=== PATIENT | female | born 1995 | race Caucasian/White ===

== ENCOUNTER 2017-02-18 13:53 | Outpatient (CLI) | payer MEDICAID | END 2017-02-18 13:54 | disposition home or self-care (01) | DX: F43.10 Post-traumatic stress disorder, unspecified (principal); F90.0 Attention-deficit hyperactivity disorder, predominantly inattentive type; F31.0 Bipolar disorder, current episode hypomanic ==

== ENCOUNTER 2017-04-21 20:02 | Emergency (ER) | payer MEDICAID ==
[2017-04-21 20:22] LABS: BASOPHILS # (AUTO) 0.1 10^3/uL (0.0-0.1); BASOPHILS % (AUTO) 0.7 %; EOSINOPHILS % (AUTO) 0.2 %; HCT - HEMATOCRIT 41.1 % (37.0-47.0); HGB - HEMOGLOBIN 13.5 g/dL (12.0-16.0); LYMPHOCYTES # (AUTO) 0.9 10^3/uL (1.5-3.5); LYMPHOCYTES % (AUTO) 6.1 %; MEAN CORPUSCULAR HEMOGLOBIN 30.1 pg (27.0-31.0); MEAN CORPUSCULAR HGB CONC 32.8 g/dL (32.0-36.0); MEAN CORPUSCULAR VOLUME 91.8 fL (81.0-99.0); MEAN PLATELET VOLUME 8.1 fL (7.9-10.8); MONOCYTES # (AUTO) 0.7 10^3/uL (0.0-1.0); MONOCYTES % (AUTO) 4.6 %; NEUTROPHILS # (AUTO) 13.1 10^3/uL (1.5-6.6); NEUTROPHILS % (AUTO) 88.4 %; NUCLEATED RED BLOOD CELLS AUTO 0.1 /100WBC; RED BLOOD COUNT 4.48 10^6/uL (4.20-5.40); RED CELL DISTRIBUTION WIDTH 14.3 % (12.0-15.0); UNCORRECTED WHITE BLOOD COUNT 14.8 x10^3/uL; WHITE BLOOD COUNT 14.8 x10^3/uL (4.8-10.8)
[2017-04-21 20:42] LABS: ALBUMIN/GLOBULIN RATIO 1.5 (1.0-2.2); BILIRUBIN,TOTAL 1.1 mg/dL (0.2-1.0); CALCIUM 9.2 mg/dL (8.5-10.3); CREATININE 0.6 mg/dL (0.4-1.0); POTASSIUM 3.8 mmol/L (3.5-5.0); TOTAL PROTEIN 7.6 g/dL (6.7-8.2)
[2017-04-21] MEDS ORDERED: MORPHINE 2 MG/ML SYRINGE IVP STA (21:33)
[2017-04-21] MEDS ORDERED: KETOROLAC 60 MG/2 ML VIAL IVP STA (21:33)
[2017-04-21] MEDS ORDERED: SODIUM CHLORIDE 0.9% 1,000 ML IV STA (21:33)
[2017-04-21] MEDS ORDERED: ONDANSETRON 4 MG/2 ML VIAL IVP STA (21:33)
--- NOTE | 2017-04-21 21:39 | ED Physician Documentation ---
PD HPI ABD PAIN - Stated complaint Stated Complaint: VOMITING/CRAMPING - Chief complaint Chief Complaint: Abd Pain - History obtained from History obtained from: Patient - History of Present Illness Timing - onset: Enter time (14:00), Today Timing - duration: Hours Timing - details: Abrupt onset Pain level now: 8 Quality: Cramping, Pain Location: All over / everywhere Improved by: Other (no ameliorating factors) Worsened by: Breathing Associated symptoms: Nausea, Vomiting. No: Fever Similar symptoms before: Diagnosis (similar to 2015 inpatient stay, diagnosed with colitis (possible/probable, based on tests)) Recently seen: Not recently seen Review of Systems Constitutional: denies: Fever, Chills, Sweats Cardiac: reports: Reviewed and negative Respiratory: reports: Reviewed and negative GI: reports: Abdominal Pain, Nausea, Vomiting : denies: Dysuria, Frequency PD PAST MEDICAL HISTORY - Past Medical History Past Medical History: No - Past Surgical History Past Surgical History: No - Present Medications Home Medications: Ambulatory Orders Medication Instructions Recorded Confirmed Ondansetron HCl [Zofran] 4 mg PO Q6HR PRN #14 tablet 04/21/17 - Allergies Allergies/Adverse Reactions: Allergies Allergy/AdvReac Type Severity Reaction Status Date / Time Penicillins AdvReac Rash Verified 04/21/17 20:09 Sulfa (Sulfonamide AdvReac Rash Verified 04/21/17 20:09 Antibiotics) - Social History Does the pt smoke?: Yes Smoking Status: Current every day smoker Does the pt drink ETOH?: No Does the pt have substance abuse?: Yes - Immunizations Immunizations are current?: Yes - POLST Patient has POLST: No PD ED PE NORMAL - Vitals Vital signs reviewed: Yes - General General: Alert and oriented X 3, Well developed/nourished, Other (appears mildly uncomfortable, shifting in bed at times) - HEENT HEENT: Moist mucous membranes - Cardiac Cardiac: RRR, No murmur - Respiratory Respiratory: No respiratory distress, Clear bilaterally - Abdomen Abdomen: Soft, Non distended, Other (mild-moderate TTP across upper abdomen without rebound or guarding) Results - Vitals Vitals: Vital Signs - 24 hr 04/21/17 04/21/17 04/21/17 20:09 20:43 21:43 Temperature 36.5 C 37.1 C Heart Rate 89 85 75 Respiratory 20 18 18 Rate Blood Pressure 124/69 106/54 L O2 Saturation 98 100 97 04/21/17 23:10 Temperature 36.1 C L Heart Rate 81 Respiratory 15 Rate Blood Pressure 103/59 L O2 Saturation 97 Oxygen O2 Source Room air Oxygen Flow Rate 2 - Labs Labs: Laboratory Tests 04/21/17 04/21/17 04/21/17 20:15 20:15 21:53 WBC 14.8 H RBC 4.48 Hgb 13.5 Hct 41.1 MCV 91.8 MCH 30.1 MCHC 32.8 RDW 14.3 Plt Count 329 MPV 8.1 Neut # 13.1 H Lymph # 0.9 L [place] # 0.7 Eos # 0.0 Baso # 0.1 Absolute Nucleated RBC 0.01 Nucleated RBCs 0.1 Sodium 137 Potassium 3.8 Chloride 103 Carbon Dioxide 25 Anion Gap 9.0 BUN 10 Creatinine 0.6 Estimated GFR (MDRD) 124 Glucose 109 H Calcium 9.2 Total Bilirubin 1.1 H AST 22 ALT 16 Alkaline Phosphatase 53 Total Protein 7.6 Albumin 4.6 Globulin 3.0 Albumin/Globulin Ratio 1.5 Lipase 18 L Urine Color YELLOW Urine Clarity CLEAR Urine pH 8.5 H Ur Specific [place] 1.015 Urine Protein NEGATIVE Urine Glucose (UA) NEGATIVE Urine Ketones NEGATIVE Urine Occult Blood NEGATIVE Urine Nitrite NEGATIVE Urine Bilirubin NEGATIVE Urine Urobilinogen 1 (NORMAL) Ur Leukocyte Esterase NEGATIVE Ur Microscopic Review NOT INDICATED Urine Culture Comments NOT INDICATED Urine HCG, Qual NEGATIVE - Rads (name of study) CT A/P Radiology: Prelim report reviewed, See rad report PD MEDICAL DECISION MAKING - ED course Complexity details: reviewed results, re-evaluated patient, considered differential, d/w patient Departure - Departure Disposition: 01 Home, Self Care Clinical Impression: Abdominal pain Condition: Good Instructions: Abdominal Pain Follow-Up: [facility] [Provider Group] [facility] [Provider Group] Prescriptions: Ondansetron HCl [Zofran] 4 mg PO Q6HR PRN #14 tablet PRN Reason: Nausea / Vomiting Discharge Date/Time: 04/21/17 23:43
[2017-04-21] MEDS ORDERED: MORPHINE 2 MG/ML SYRINGE ONE (21:44)
[2017-04-21] MEDS ORDERED: ONDANSETRON 4 MG/2 ML VIAL ONE (21:44)
[2017-04-21] MEDS ORDERED: KETOROLAC 30 MG/ML VIAL ONE (21:44)
[2017-04-21 22:02] LABS: BILIRUBIN,URINE NEGATIVE (NEGATIVE); PH,URINE 8.5 PH (5.0-7.5)
[2017-04-21 22:04] LABS: HCG UR QUAL NEGATIVE; UA CHARGE (STRIP ONLY) YES; UR CULTURE IF IND NOT INDICATED
[2017-04-21] MEDS ORDERED: IOPAMIDOL-300 100 ML VIAL IVP ONE (22:25)
--- NOTE | 2017-04-21 23:03 | CT Preliminary Report ---
Exam: CT Abdomen/Pelvis W/ IMPRESSION: 1. No acute abdominal or pelvic abnormality. 2. Physiologic appearance of the uterus and ovaries. [facility] SITE ID: [id number]
--- NOTE | 2017-04-21 23:05 | CT Report ---
EXAM: CT ABDOMEN AND PELVIS EXAM DATE: 04/21/2017 10:19 PM. CLINICAL HISTORY: Diffuse abdominal pain. COMPARISONS: None. TECHNIQUE: Routine helical CT imaging was performed through the abdomen and pelvis. IV contrast: 100 cc Isovue-300. Enteric contrast: No. Reconstructions: Coronal and sagittal. In accordance with CT protocol optimization, one or more of the following dose reduction techniques w ere utilized for this exam: automated exposure control, adjustment of mA and/or KV based on patient s ize, or use of iterative reconstructive technique. FINDINGS: ABDOMEN: Liver: No significant abnormality. Stomach/Distal Esophagus: No significant abnormality. Gallbladder: No significant abnormality. Suspect fundal adenomyomatosis. Bile Ducts: No significant abnormality. Pancreas: No significant abnormality. Spleen: No significant abnormality. Kidneys: No solid appearing lesion. No hydronephrosis. Adrenals: No significant abnormality. Bowel: No obstruction. Average fecal residual. Appendix: Normal. Lymph Nodes: No pathologically enlarged nodes. Vasculature: Normal caliber aorta. Fluid: No significant free fluid. Abdominal Wall: No significant abnormality. Other: No significant abnormality. PELVIS: Uterus and Ovaries: No significant abnormality. Bladder: There is a punctate calcific density projecting along the left posterior lateral bladder bas e (image 84 series 3). Projects below the expected level of the UVJ. This is likely a phlebolith. Lymph Nodes: No pathologically enlarged nodes. Fluid: No significant free fluid. Other: None. BONES: No suspicious bony lesions. LOWER CHEST: No significant consolidation or effusion. IMPRESSION: 1. No acute abdominal or pelvic abnormality. 2. Physiologic appearance of the uterus and ovaries. [facility] Referring Provider Line: [phone] SITE ID: [id number]
[2017-04-21 23:10] VITALS: BP 103/59
[2017-04-21] MEDS ORDERED: HYDROcod/ACET 5/325 Prepack 6 PO STA (23:29)
[2017-04-21] MEDS ORDERED: HYDROcod/ACET 5/325 Prepack 6 PO ONE (23:35)
== END 2017-04-21 23:43 | disposition home or self-care (01) ==
LOC: ED 20:02
DX: R10.9 Unspecified abdominal pain (principal); R11.2 Nausea with vomiting, unspecified; F17.200 Nicotine dependence, unspecified, uncomplicated
CPT/HCPCS: 36415; 74177; 80053; 81003; 81025; 83690; 85025; 96374; 96375; 99283; 99284; Q9967; 81001; 87086

== ENCOUNTER 2017-08-22 19:09 | Observation (INO) | payer MEDICAID ==
[~2017-08-22 19:09] MED LIST: LACTATED RINGERS 1,000 ML IV ONE
[2017-08-22] MEDS ORDERED: ALBUTEROL NEB 2.5 MG/3 ML INH STA (20:18)
--- NOTE | 2017-08-22 20:21 | ED Physician Documentation ---
PD HPI ABD PAIN - Stated complaint Stated Complaint: SIDE PX/16WK OB - Chief complaint Chief Complaint: Abd Pain - History obtained from History obtained from: Patient - History of Present Illness Timing - onset: Other ( at 16 weeks gestation developed cough a few days ago and since yesterday has right lower quadrant pain radiating to the right back. It is worse when she coughs but also present at rest. There is no fever. She does have mild nausea. No history of abdominal surgeries.) Review of Systems Ten Systems: 10 systems reviewed and negative Constitutional: denies: Fever, Chills Ears: reports: Loss of hearing Nose: reports: Rhinorrhea / runny nose. denies: Congestion Cardiac: denies: Chest pain / pressure, Palpitations Respiratory: reports: Dyspnea, Cough GI: reports: Abdominal Pain, Nausea. 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 : None HEENT: None Psych: None Musculoskeletal: None Derm: None - Past Surgical History Past Surgical History: No - Present Medications Home Medications: Ambulatory Orders Medication Instructions Recorded Confirmed No Known Home Medications [No 08/22/17 08/22/17 Known Home Medications] - Allergies Allergies/Adverse Reactions: Allergies Allergy/AdvReac Type Severity Reaction Status Date / Time Penicillins AdvReac Rash Verified 08/22/17 19:25 Sulfa (Sulfonamide AdvReac Rash Verified 08/22/17 19:25 Antibiotics) - Social History Does the pt smoke?: Yes Smoking Status: Current every day smoker Does the pt drink ETOH?: No Does the pt have substance abuse?: No - Family History Family history: reports: Non contributory - Immunizations Immunizations are current?: Yes - POLST Patient has POLST: No PD ED PE NORMAL - Vitals Vital signs reviewed: Yes - General General: Alert and oriented X 3, No acute distress, Other (Frequent coughing) - HEENT HEENT: PERRL, EOMI - Neck Neck: Supple, no meningeal sign, No bony TTP - Cardiac Cardiac: RRR, No murmur - Respiratory Respiratory: Other (Mild diffuse expiratory wheezing, nonlabored) - Abdomen Abdomen: Other (Gravid, moderate tenderness in the right lower quadrant and mild diffuse tenderness in the pelvis. Bedside ultrasound demonstrates single live intrauterine with heart rate of 150.) - Back Back: No CVA TTP, No spinal TTP - Derm Derm: Normal color, Warm and dry - Extremities Extremities: No edema, No calf tenderness / cord - Neuro Neuro: Alert and oriented X 3, Normal speech - Psych Psych: Normal mood, Normal affect Results - Vitals Vitals: Vital Signs - 24 hr 08/22/17 08/22/17 08/22/17 19:23 20:25 22:01 Temperature 36.5 C 36.5 C Heart Rate 75 74 53 L Respiratory 18 16 17 Rate Blood Pressure 93/58 L 109/62 O2 Saturation 99 97 Oxygen O2 Source Room air - Labs Labs: Laboratory Tests 08/22/17 08/22/17 08/22/17 20:45 20:45 21:10 WBC 18.9 H RBC 4.01 L Hgb 12.8 Hct 37.1 MCV 92.5 MCH 31.9 H MCHC 34.5 RDW 14.4 Plt Count 195 MPV 9.4 Neut # 15.6 H Lymph # 1.8 [place] # 1.2 H Eos # 0.2 Baso # 0.1 Absolute Nucleated RBC 0.00 Nucleated RBCs 0.0 Sodium 134 L Potassium 3.7 Chloride 104 Carbon Dioxide 22 Anion Gap 8.0 BUN 5 L Creatinine 0.4 Estimated GFR (MDRD) 198 Glucose 90 Calcium 8.8 Total Bilirubin 0.5 AST 17 ALT 10 Alkaline Phosphatase 43 Total Protein 6.8 Albumin 3.7 Globulin 3.1 Albumin/Globulin Ratio 1.2 Lipase 21 L Urine Color YELLOW Urine Clarity CLEAR Urine pH 6.0 Ur Specific [place] 1.010 Urine Protein NEGATIVE Urine Glucose (UA) NEGATIVE Urine Ketones NEGATIVE Urine Occult Blood NEGATIVE Urine Nitrite NEGATIVE Urine Bilirubin NEGATIVE Urine Urobilinogen 0.2 (NORMAL) Ur Leukocyte Esterase NEGATIVE Ur Microscopic Review NOT INDICATED Urine Culture Comments NOT INDICATED - Rads (name of study) RUQ sono Radiology: EMP read contemporaneously (appendix not visualized, incidental findings as noted (not "mediastinal" as on initial impression, called Dr Flores to confirm.)) PD MEDICAL DECISION MAKING - ED course ED course: 21-year-old woman presents with right lower quadrant pain in the setting of a URI with wheezing. Her examination is very suggestive of appendicitis with right lower quadrant tenderness and rebound tenderness. An ultrasound was done, however we could not identify the appendix. At that juncture the on-call surgeon, Dr. Diez was called and he saw the patient plans to take her to the operating room for an exploratory laparoscopy. Departure - Departure Disposition: ED Transfer to [facility] Clinical Impression: Acute abdomen Qualifiers: Weeks of gestation: 16 weeks Qualified Code(s): Z3A.16 - 16 weeks gestation of Condition: Stable
[2017-08-22] MEDS ORDERED: SODIUM CHLORIDE FLUSH 0.9% 10 ML SYRINGE IVP ONE ×2 (20:28→22:26)
[2017-08-22] MEDS ORDERED: ALBUTEROL NEB 2.5 MG/3 ML INH ONE (20:29)
[2017-08-22 20:50] LABS: BASOPHILS # (AUTO) 0.1 10^3/uL (0.0-0.1); BASOPHILS % (AUTO) 0.4 %; EOSINOPHILS # (AUTO) 0.2 10^3/uL (0.0-0.7); EOSINOPHILS % (AUTO) 1.1 %; HCT - HEMATOCRIT 37.1 % (37.0-47.0); HGB - HEMOGLOBIN 12.8 g/dL (12.0-16.0); LYMPHOCYTES # (AUTO) 1.8 10^3/uL (1.5-3.5); LYMPHOCYTES % (AUTO) 9.3 %; MEAN CORPUSCULAR HEMOGLOBIN 31.9 pg (27.0-31.0); MEAN CORPUSCULAR HGB CONC 34.5 g/dL (32.0-36.0); MEAN CORPUSCULAR VOLUME 92.5 fL (81.0-99.0); MEAN PLATELET VOLUME 9.4 fL (7.9-10.8); MONOCYTES # (AUTO) 1.2 10^3/uL (0.0-1.0); MONOCYTES % (AUTO) 6.5 %; NEUTROPHILS # (AUTO) 15.6 10^3/uL (1.5-6.6); NEUTROPHILS % (AUTO) 82.7 %; RED BLOOD COUNT 4.01 10^6/uL (4.20-5.40); RED CELL DISTRIBUTION WIDTH 14.4 % (12.0-15.0); UNCORRECTED WHITE BLOOD COUNT 18.9 x10^3/uL; WHITE BLOOD COUNT 18.9 x10^3/uL (4.8-10.8)
[2017-08-22 21:02] LABS: ALBUMIN/GLOBULIN RATIO 1.2 (1.0-2.2); BILIRUBIN,TOTAL 0.5 mg/dL (0.2-1.0); CALCIUM 8.8 mg/dL (8.5-10.3); CREATININE 0.4 mg/dL (0.4-1.0); POTASSIUM 3.7 mmol/L (3.5-5.0); TOTAL PROTEIN 6.8 g/dL (6.7-8.2)
[2017-08-22 21:18] LABS: BILIRUBIN,URINE NEGATIVE (NEGATIVE)
[2017-08-22 21:23] LABS: UA CHARGE (STRIP ONLY) YES; UR CULTURE IF IND NOT INDICATED
--- NOTE | 2017-08-22 21:32 | Ultrasound Preliminary Report ---
Exam: US Abdomen Limited IMPRESSION: 1. Appendix not visualized. 2. Other mediastinal findings as noted. [facility] SITE ID: [id number]
--- NOTE | 2017-08-22 21:35 | Ultrasound Report ---
EXAM: Limited ABDOMEN ultrasound EXAM DATE: 08/22/2017 09:20 PM. CLINICAL HISTORY: RLQ pain, try to find appendix. COMPARISON: None. TECHNIQUE: Real-time scanning was performed of the right lower quadrant with static images obtained. FINDINGS: APPENDIX: Not seen. COMPRESSION TOLERATED: Moderate. ASSOCIATED FINDINGS: Lymph Nodes Seen: No. Free Fluid/Complex Fluid Seen: No. Thickened Bowel Wall Seen: No. Other: Minimal prominence of right renal collecting structures. Grossly unremarkable right ovary with normal vascularity. Intrauterine gestation with heart rate 146 bpm. IMPRESSION: 1. Appendix not visualized. 2. Other mediastinal findings as noted. [facility] Referring Provider Line: [phone] SITE ID: [id number]
[2017-08-22] MEDS ORDERED: MORPHINE 2 MG/ML SYRINGE IVP STA (22:19)
[2017-08-22] MEDS ORDERED: MORPHINE 2 MG/ML SYRINGE ONE (22:25)
[2017-08-22] MEDS ORDERED: ONDANSETRON 4 MG/2 ML VIAL IVP STA (23:00)
[2017-08-22] MEDS ORDERED: ONDANSETRON 4 MG/2 ML VIAL ONE (23:16)
[2017-08-22] MEDS ORDERED: metroNIDAZOLE 500 MG/100 ML 100 ML ONE (23:47)
[2017-08-23] MEDS ORDERED: ONDANSETRON 4 MG/2 ML VIAL IVP ONE (00:15)
[2017-08-23] MEDS ORDERED: ROCURONIUM 50 MG/5 ML VIAL IVP ONE (00:15)
[2017-08-23] MEDS ORDERED: fentaNYL 100 MCG/2 ML VIAL IVP ONE (00:15)
[2017-08-23] MEDS ORDERED: PROPOFOL 200 MG/20 ML VIAL IVP ONE (00:15)
[2017-08-23] MEDS ORDERED: LIDOCAINE-MPF 2% 5 ML VIAL IM ONE (00:15)
[2017-08-23] MEDS ORDERED: SUCCINYLCHOLINE 200 MG/10 ML VIAL IVP ONE (00:15)
[2017-08-23] MEDS ORDERED: ACETAMINOPHEN 1,000 MG/100 ML 100 ML IV ONE (00:15)
[2017-08-23] MEDS ORDERED: HYDROmorphone 1 MG/ML CARPUJECT IVP ONE (00:15)
[2017-08-23] MEDS ORDERED: BUPIVACAINE 0.25%-EPI 1:200000 PF 10 ML VIAL SUBQ ONE (00:40)
[2017-08-23] MEDS ORDERED: SODIUM CHLORIDE 0.9% 1,000 ML IV ONE ×2 (03:14→15:48)
[2017-08-23] MEDS ORDERED: HYDROmorphone 1 MG/ML CARPUJECT ONE ×4 (03:16→15:40)
--- NOTE | 2017-08-23 03:22 | HISTORY & PHYSICAL EXAMINATION ---
DATE OF ADMISSION: 08/22/2017 HISTORY OF PRESENT ILLNESS: I am called in consultation by Dr. Fred Scanlon to evaluate this 21-year-old female who has had a less than 24-hour history of abdominal pain that localized to the right lower quadrant and going back to her flank. This is accompanied by nausea, but she has not vomited yet, although she states that she feels like she needs to. She is anorectic. She has had a low grade temperature. Importantly, she has also had an upper respiratory infection with chronic coughing and this predates this abdominal pain. Also important to note, is the patient is 16 weeks . Previously she has had an and a miscarriage. ALLERGIES: 1. PENICILLIN. 2. SULFA. MEDICATIONS: vitamins but she states that she did not take her vitamins today. SOCIAL HISTORY: She is a cigarette smoker and states that she is having 1 cigarette a day. I urged her and her significant other to quit for the health of her baby. Alcohol, none. Recreational drug use, none. FAMILY HISTORY: Noncontributory for this. REVIEW OF SYSTEMS: GENERAL: There has been no unexplained weight loss. HEENT: There is no improvement or decrease in her hearing or vision. NECK: There is no difficulty swallowing or speaking. CARDIAC: There is no chest pain or pressure. RESPIRATORY: There is no shortness of breath, but there is productive cough. ABDOMEN: Tender in the right lower quadrant. She, up until today, was having normal bowel movements without blood. GENITOURINARY: There is no dysuria. EXTREMITIES: There is no joint pain or muscle pain. NEUROLOGIC: There is no focal deficit. PSYCHIATRIC: There is no significant problem with anxiety or depression. PHYSICAL EXAMINATION: GENERAL: This is a 21-year-old female evaluated in room 2 at [facility]'s emergency department. She is alert and oriented to person, place and time. She appears her stated age. She is in quite a bit of pain and points to her right lower quadrant. Moving hurts but she cannot find a comfortable position. VITAL SIGNS: Please refer to nursing note. HEENT: She is normocephalic, atraumatic. Sclerae not injected, anicteric. Mucous membranes are pink and dry. NECK: Supple without mass or bruits. HEART: Regular rate and rhythm without rub, murmur or gallop. LUNGS: Clear to auscultation bilaterally, anterolaterally. ABDOMEN: Tender. Point of maximal tenderness at McBurney point. She does have bowel sounds. She has a gravid uterus that is palpable She has no palpable hepatosplenomegaly. GYNECOLOGIC: Deferred. RECTAL: Deferred. EXTREMITIES: Show no clubbing, cyanosis, or edema. GAIT: evaluated and is normal. NEUROLOGIC: There is no focal deficit. PSYCHIATRIC: She is alert and oriented to person, place and time. She asks and answers questions well. Her mood and affect appear appropriate. LABORATORY: Abnormalities include a white blood cell count over 18. Please note that [employer] is down and I cannot retrieve those numbers now. RADIOGRAPHIC STUDIES: The appendix is not visualized and other mediastinal findings as noted on her abdominal ultrasound. ASSESSMENT: A 21-year-old female with signs and symptoms consistent with acute appendicitis. PLAN: Laparoscopic appendectomy with possible open appendectomy. The indications , procedure, alternatives, and possible complications including but not limited to infection, bleeding with all of its risks, loss of the baby, and were fully explained to the patient and all questions were answered. Verbal and written consent was obtained. The patient in preparation for this will be maintained n.p.o. The patient has been given 2 grams of aztreonam IV piggyback for prophylaxis against surgical infection, as well as 500 mg of Flagyl. I have asked her to let us know if there is any way we can make her stay here at [facility] more comfortable, to please let us know, and she stated that she would. JOB #: [id number] EXT JOB #:[id number] OCHOA
--- NOTE | 2017-08-23 03:46 | OPERATIVE REPORT ---
DATE OF SURGERY: 08/22/2017 00:00:00 PREOPERATIVE DIAGNOSIS: Acute appendicitis. PROCEDURE: Laparoscopic appendectomy and umbilical herniorrhaphy. POSTOPERATIVE DIAGNOSIS: Rather normal looking appendix with a somewhat inflamed right ovary and fall opian tube without purulence. SURGEON: Car Diez MD. LAWN TECHNICIAN: Manjinder Lunsford. OPERATIVE FLUIDS: 800 mL crystalloid. ESTIMATED BLOOD LOSS: Less than 5 mL. URINE OUTPUT: Not measured. DETAILS OF THE PROCEDURE: After verbal and written informed consent was obtained detailing the risks of infection, bleeding requiring transfusion with its risks, loss of the baby and , the patient was brought to the operative suite and placed supine on the operating room table. Great care was take n to avoid pressure points to prevent pressure necrosis or nerve injury. Monitoring devices were appl ied along with TEDs and pneumatic compression stockings to prevent DVT. The patient received preopera tive antibiotics (aztreonam and Flagyl) for surgical prophylaxis. Manjinder Lunsford sedated and anestheti zed the patient for the entire procedure. The patient was prepped and draped in the usual sterile man ner. With the patient draped, a "time in" then confirmed the patient was identified with 3 identifier s (name, date, and medical record number), the history and physical was in the chart, and kavon d consent confirmed the procedure was in the chart, the patient was in the correct position, the afor ementioned prophylactic measures were in place were given, we had the correct personnel and equipment to complete the procedure, and that anesthesia and surgery and nursing were given an opportunity to express any concerns. With the agreement of everyone in the room, we proceeded with the operation. A 2 cm umbilical incision was made. As soon as the skin was opened, it was clear that the patient had a n umbilical hernia, as we were into the abdomen. This fascia was then cleared with subcutaneous tissu e using a tonsil clamp and this incision was then widened using a knife, as well as Metzenbaum scisso rs to allow entry of a 12 mm blunt-tipped balloon-tipped Balaji port into the abdomen without inciden t. The balloon was inflated to keep it in place. The pneumoperitoneum was then established using carb on dioxide insufflation to a steady state of pressure of 15 mmHg. Two additional 5 mm ports were plac ed, one in the midline above the umbilicus and one in the right mid abdomen to avoid the gravid uteru s. The patient was then rotated slightly to the left and slightly head down (from the gallbladder). The appendix was identified and noted to be retrocecal. The appendix was then dissected free from its att achments behind the cecum using a LigaSure and traction and countertraction. The dissection was brandon ed down to the base of the appendix. No bleeding was noted. Once the mesentery of the appendix had be en completely taken using the LigaSure, the base of the appendix was stapled and transected using a l aparoscopic vascular stapler. The visualization of the staple line revealed absolutely no bleeding or leak of bowel contents. The appendix was then placed in an Endopouch for the remainder of the case a nd the patient was rotated to lie flat. Numerous photographs were taken of a rather odd appearing rig ht ovary and fallopian tubes that looked quite vascular. The fascia and skin were injected using a to hilda of 30 mL of 0.25% Marcaine with epinephrine for pain control. The insufflation was released, and the ports removed. The fascial defect at the umbilicus was then approximated using 0 Vicryl sutures a nd 3 figure of 8 configurations were closed in the fascia and repairing the umbilical hernia. The ski n incisions were approximated using 4-0 Monocryl in a subcuticular fashion. The surgical prep was rem nicole and the skin was prepped with benzoin and Steri-Strips were applied. A dressing was applied. At this point, a timeout was performed that confirmed that all counts were correct x2, the procedure emmy t was performed, the blood loss, the urine output (not measured), the IV fluids administered, and the patient's condition. Having tolerated the procedure well, the patient was subsequently extubated and taken to the recovery room in good and stable condition. JOB #: [id number] EXT JOB #:[id number]
--- NOTE | 2017-08-23 04:58 | CONSULTATION NOTE ---
DATE OF CONSULTATION: 08/23/2017 00:00:00 IDENTIFICATION: A 23-year-old G3, P0-0-2-0, with approximately 16-week . EDC is 02/02/2018 b y boyfriend's report. HISTORY OF PRESENT ILLNESS: I was consulted by Dr. Car Diez who had just completed a laparoscopi c appendectomy and umbilical herniorrhaphy on the patient this evening. She presented earlier to the emergency department with complaints of right lower quadrant pain. Intraoperatively, Dr. Diez not ed that her appendix was grossly normal and was not sure why the patient was in such pain when she aw loc from anesthesia. The patient has been pretty much writhing in the gurney here in the postoperativ e recovery area. She has been given at least 500 mcg of fentanyl and 2 mg of Dilaudid and the patient is still in significant pain. I looked at the photographs from laparoscopy and the ovaries are within normal limits and appear to j ust have a progestational effect. From what I can see from the photographs, there is nothing abnormal about the . I did interview Kevan, the patient's boyfriend and father of the baby. He state s that for the last day and a half, the patient has been experiencing this abdominal pain. He states that she has had an acute onset of where she points to right flank pain that originates in her right back and travels anteriorly to her flank and then to the right lower quadrant. Kevan denies the patie nt complaining of any hematuria or vaginal bleeding. He states that the patient tried Tylenol to no a vail. He also states she had a low-grade fever, but denies any headaches or dysuria. Kevan also state s that the patient has been having an upper respiratory infection for the last 2 days and has been co ughing quite a bit. In addition to her upper respiratory infection, she has been dealing with morning sickness and not eating as much. He has noticed that she has decreased her water intake and he is co ncerned about this. Kevan states that the patient is followed by Dr. Winnie Friend with respect to thi s . 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 PAST MEDICAL HISTORY: None. Kevan denies the patient having any diabetes, hypertension or thyroid dis orders. PAST SURGICAL HISTORY: On 08/23/2017, laparoscopic appendectomy and umbilical herniorrhaphy. ALLERGIES 1. PENICILLIN. 2. SULFA. MEDICATIONS 1. vitamins 2. P.r.n. Tylenol. 3. P.r.n. Robitussin. SOCIAL HISTORY: The patient has been a long-time smoker for long than Kevan has known her. He would e stimate at least the patient has a 5-year history of smoking. She is currently down to 1 cigarette pe r day. Kevan denies the patient consuming alcohol. Kevan also states that the patient smokes marijuan a quite a bit and has been smoking marijuana for nausea during this . She has cut down quite a bit compared to her normal. 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 PAST OBSTETRICAL HISTORY: One therapeutic , one spontaneous . PAST GYNECOLOGICAL HISTORY: The patient have any prior history of chlamydia or gonorrhea. He states t hat her Pap smears have been normal. OBJECTIVE VITAL SIGNS: Stable, she is currently afebrile. GENERAL: The patient is a well-developed, well-nourished female in some amount of pain here in the recovery room. She has been moaning in pain, but will have periods of being quiet. She cannot elucidate to me currently exactly what kind of pain she is experiencing. She does note that this nathaniel n is worse than previous to surgery. HEENT: She has oily hair and poor dentition. LABORATORY: Copies of the laboratories were obtained from the laboratory itself since [facility] is cur rently down. On 08/22/2017, white count was 18.9, H and H was 12.8 and 37.1, and platelets 195. Sodiu m 134, potassium 3.7, creatinine 0.4, glucose 90, AST 17, ALT 10. Urinalysis is essentially unremarka ble with negative leukocytes, negative nitrites, negative protein, negative occult blood, specific gr avity is 1.01. Ketones are negative, and glucose is negative. The MUDSS is currently pending. ASSESSMENT 1. A 23-year-old G3, P0-0-2-0, with an approximately a 16-week intrauterine . 2. Right abdominal pain. 3. Status post laparoscopic appendectomy with umbilical herniorrhaphy on 08/23/2017. PLAN 1. It is not clear to me why the patient is experiencing this pain. Certainly we need to wait until t he MUDDS screen comes back, as this would explain why such a high amount of narcotics has not effecti maría taken care of her symptoms. Assuming that is negative, my best guess why the patient is having t his pain is probably ureteral. I suspect that with pain medications, as well as IV hydration, this wi ll help with her pain. In the meantime, I recommended to strain her urine. A repeat of the urinalysis also could be a consideration. 2. Daily heart tones. 3. We will request records from Dr. Winnie Friend for the patient's records. JOB #: [id number] EXT JOB #:[id number]
[2017-08-23 06:09] LABS: BASOPHILS % (AUTO) 0.1 %; HCT - HEMATOCRIT 33.2 % (37.0-47.0); HGB - HEMOGLOBIN 11.3 g/dL (12.0-16.0); LYMPHOCYTES # (AUTO) 0.6 10^3/uL (1.5-3.5); LYMPHOCYTES % (AUTO) 3.5 %; MEAN CORPUSCULAR HGB CONC 34.1 g/dL (32.0-36.0); MEAN CORPUSCULAR VOLUME 93.8 fL (81.0-99.0); MONOCYTES # (AUTO) 0.3 10^3/uL (0.0-1.0); MONOCYTES % (AUTO) 1.8 %; NEUTROPHILS # (AUTO) 15.6 10^3/uL (1.5-6.6); NEUTROPHILS % (AUTO) 94.6 %; RED BLOOD COUNT 3.53 10^6/uL (4.20-5.40); RED CELL DISTRIBUTION WIDTH 14.4 % (12.0-15.0); UNCORRECTED WHITE BLOOD COUNT 16.5 x10^3/uL; WHITE BLOOD COUNT 16.5 x10^3/uL (4.8-10.8)
[2017-08-23] MEDS ORDERED: HYDROcod/ACETAM 10 MG/325 MG TABLET PO PRN (06:11)
[2017-08-23 06:24] LABS: ALBUMIN/GLOBULIN RATIO 1.2 (1.0-2.2); BILIRUBIN,TOTAL 0.5 mg/dL (0.2-1.0); BUN - BLOOD UREA NITROGEN 5 mg/dL (6-20); CALCIUM 7.8 mg/dL (8.5-10.3); CARBON DIOXIDE - CO2 22 mmol/L (21-32); CHLORIDE 107 mmol/L (101-111); CREATININE 0.5 mg/dL (0.4-1.0); GFR - MDRD 153 (>89); GLUCOSE 131 mg/dL (70-100); SODIUM 135 mmol/L (135-145); TOTAL PROTEIN 5.9 g/dL (6.7-8.2)
[2017-08-23] MEDS ORDERED: metroNIDAZOLE 500 MG/100 ML 500 MG/100 ML BAG ONE (06:52)
[2017-08-23] MEDS ORDERED: metroNIDAZOLE 500 MG/100 ML 500 MG/100 ML BAG IV SCH (07:00)
[2017-08-23] MEDS: HYDROmorphone 1 MG/ML CARPUJECT IVP PRN ×3 (07:05→19:21)
[2017-08-23] MEDS ORDERED: AZTREONAM 2 GM in SODIUM CHLORIDE 0.9% MINIBAG 100 ML IV SCH ×2 (08:00→13:00)
--- NOTE | 2017-08-23 09:07 | PROVIDER PROGRESS NOTE ---
Subjective - Prog Note Date Prog Note Date: 08/23/17 Prog Note Time: 09:05 - Subjective Pt reports feeling: Worse Subjective: Patient lying still in bed. No longer writhing like she did in recovery. Not moaning, no coughing during interview. Boyfriend (Roland) at bedside as well as boyfriend's mom. States the pain is still severe, as bad as it was in recovery. Pain now is reported on the left side, not the right side. Objective - Vital Signs/Intake & Output Reviewed Vital Signs: Yes - Objective General Appearance: positive: No acute distress (Patient not obvious pain. Clinically looks much improved compared to her presentation in Recovery. Lying still in bed, not writhing as before.) Abdomen: positive: Tenderness (Steri-strips on 3 laparoscopic incisions. Appropriate tenderness. No peritoneal signs.) - Lab Results Fish Bones: 08/23/17 05:28 08/23/17 05:28 Other Labs: Lab Results x24hrs 08/23/17 08/23/17 Range/Units 05:28 05:28 WBC 16.5 H (4.8-10.8) x10^3/uL RBC 3.53 L (4.20-5.40) 10^6/uL Hgb 11.3 L (12.0-16.0) g/dL Hct 33.2 L (37.0-47.0) % MCV 93.8 (81.0-99.0) fL MCH 32.0 H (27.0-31.0) pg MCHC 34.1 (32.0-36.0) g/dL RDW 14.4 (12.0-15.0) % Plt Count 167 (130-450) 10^3/uL MPV 10.0 (7.9-10.8) fL Neut # 15.6 H (1.5-6.6) 10^3/uL Lymph # 0.6 L (1.5-3.5) 10^3/uL Taliaferro # 0.3 (0.0-1.0) 10^3/uL Eos # 0.0 (0.0-0.7) 10^3/uL Baso # 0.0 (0.0-0.1) 10^3/uL Absolute Nucleated RBC 0.00 x10^3/uL Nucleated RBC % 0.0 /100WBC Sodium 135 (135-145) mmol/L Potassium 4.0 (3.5-5.0) mmol/L Chloride 107 (101-111) mmol/L Carbon Dioxide 22 (21-32) mmol/L Anion Gap 6.0 (6-13) BUN 5 L (6-20) mg/dL Creatinine 0.5 (0.4-1.0) mg/dL Estimated GFR (MDRD) 153 (>89) Glucose 131 H (70-100) mg/dL Calcium 7.8 L (8.5-10.3) mg/dL Total Bilirubin 0.5 (0.2-1.0) mg/dL AST 16 (10-42) IU/L ALT < 10 L (10-60) IU/L Alkaline Phosphatase 40 L (42-121) IU/L Total Protein 5.9 L (6.7-8.2) g/dL Albumin 3.2 (3.2-5.5) g/dL Globulin 2.7 (2.1-4.2) g/dL Albumin/Globulin Ratio 1.2 (1.0-2.2) Assessment/Plan - Problem List (1) Acute abdomen Impression: 21 yo with a 16 week IUP. S/p laparoscopic appendectomy Abdominal pain of unknown etiology. Patient now states that pain in on the left side. Patient is Obstetrically stable. May consider retroperitoneal U/S to better ellucidate cause of pain. DDx includes ureterolith and hydronephrosis.
[2017-08-23] MEDS: ACETAMINOPHEN 1,000 MG/100 ML 100 ML IV SCH ×4 (11:56→23:58)
[2017-08-23] MEDS: SODIUM CHLORIDE 0.9% 1,000 ML IV SCH ×3 (11:56→15:46)
[2017-08-23] MEDS: SODIUM CHLORIDE FLUSH 0.9% 10 ML SYRINGE IVP ONE ×2 (11:57→13:46)
[2017-08-23] MEDS ORDERED: SODIUM CHLORIDE FLUSH 0.9% 10 ML SYRINGE IVP ONE ×2 (13:33→19:23)
[2017-08-23] MEDS ORDERED: ACETAMINOPHEN 1,000 MG/100 ML 100 ML IV SCH (16:00)
[2017-08-23] MEDS: HYDROcod/ACETAM 10 MG/325 MG TABLET PO PRN (18:39)
[2017-08-23] MEDS: AZTREONAM 2 GM in SODIUM CHLORIDE 0.9% MINIBAG 100 ML IV SCH (19:51)
[2017-08-23] MEDS ORDERED: ONDANSETRON 4 MG/2 ML VIAL ONE (21:05)
[2017-08-24] MEDS ORDERED: ONDANSETRON 4 MG/2 ML VIAL IVP PRN (00:07)
--- NOTE | 2017-08-24 00:14 | PROVIDER PROGRESS NOTE ---
Subjective - General Admit Date: 08/23/17 Procedure Date: 08/23/17 Post Op Days: 1 Procedure Performed: Laparoscopic appendectomy - Review of Systems Wound/Incisions: positive: Drainage (Minimal) General: positive: Other (Pain out of proportion to her surgery or findings.) HEENT: positive: No symptoms Pulmonary: positive: Cough, Sputum Cardiovascular: positive: No symptoms Gastrointestinal: positive: Other (Pain in right side and flank.) Genitourinary: positive: No symptoms Musculoskeletal: positive: Other (Continued right flank pain.) Skin: positive: No symptoms Psychiatric: positive: Anxiety Objective - Patient Data Reviewed Vital Signs: Yes Vital Signs: Vital Signs x48h Temp Pulse Resp BP Pulse Ox 08/24/17 00:10 36.8 C 76 18 114/62 91 L 08/23/17 22:56 36.8 C 78 18 105/58 L 96 Intake & Output: Intake and Output Totals x24h 08/22/17 08/23/17 08/24/17 23:59 23:59 23:59 Intake Total 320 Output Total 400 Balance -80 - Lab Results Lab Results: 08/23/17 05:28 08/23/17 05:28 Other Lab Results: Lab Results x24hrs 08/23/17 08/23/17 Range/Units 05:28 05:28 WBC 16.5 H (4.8-10.8) x10^3/uL RBC 3.53 L (4.20-5.40) 10^6/uL Hgb 11.3 L (12.0-16.0) g/dL Hct 33.2 L (37.0-47.0) % MCV 93.8 (81.0-99.0) fL MCH 32.0 H (27.0-31.0) pg MCHC 34.1 (32.0-36.0) g/dL RDW 14.4 (12.0-15.0) % Plt Count 167 (130-450) 10^3/uL MPV 10.0 (7.9-10.8) fL Neut # 15.6 H (1.5-6.6) 10^3/uL Lymph # 0.6 L (1.5-3.5) 10^3/uL [place] # 0.3 (0.0-1.0) 10^3/uL Eos # 0.0 (0.0-0.7) 10^3/uL Baso # 0.0 (0.0-0.1) 10^3/uL Absolute Nucleated RBC 0.00 x10^3/uL Nucleated RBC % 0.0 /100WBC Sodium 135 (135-145) mmol/L Potassium 4.0 (3.5-5.0) mmol/L Chloride 107 (101-111) mmol/L Carbon Dioxide 22 (21-32) mmol/L Anion Gap 6.0 (6-13) BUN 5 L (6-20) mg/dL Creatinine 0.5 (0.4-1.0) mg/dL Estimated GFR (MDRD) 153 (>89) Glucose 131 H (70-100) mg/dL Calcium 7.8 L (8.5-10.3) mg/dL Total Bilirubin 0.5 (0.2-1.0) mg/dL AST 16 (10-42) IU/L ALT < 10 L (10-60) IU/L Alkaline Phosphatase 40 L (42-121) IU/L Total Protein 5.9 L (6.7-8.2) g/dL Albumin 3.2 (3.2-5.5) g/dL Globulin 2.7 (2.1-4.2) g/dL Albumin/Globulin Ratio 1.2 (1.0-2.2) - Current Medications Current Medications: Current Medications Generic Name Dose Route Start Last Admin Trade Name Freq PRN Reason Stop Dose Admin Acetaminophen/Hydrocodone Bitart 1 tab 08/23/17 15:42 08/23/17 18:39 Hemlock 10 Mg/325 Mg PO 1 tab Q4HR PRN Administration PAIN Hydromorphone HCl 0.5 mg 08/23/17 15:42 08/23/17 19:21 Dilaudid Inj IVP 0.5 mg Q30M PRN Administration PAIN Sodium Chloride 1,000 mls @ 200 mls/hr 08/23/17 16:00 08/23/17 15:46 Normal Saline 0.9% IV 200 mls/hr .Q5H MEIR Administration Acetaminophen 100 mls @ 400 mls/hr 08/23/17 18:00 08/23/17 23:58 Ofirmev IV 08/24/17 00:14 400 mls/hr Q6H MEIR Administration Aztreonam 2 gm/ Sodium 100 mls @ 100 mls/hr 08/23/17 20:00 08/23/17 19:51 Chloride IV 100 mls/hr Q8H MEIR Administration - Physical Exam Wound/Incisions: positive: Drainage (Minimal.) General Appearance: positive: Moderate distress, Anxious Eyes Bilateral: positive: No lid inflammation, Conjunctivae nml, No scleral icterus Neck: positive: Trachea midline Respiratory: positive: Chest non-tender Cardiovascular: positive: Regular rate & rhythm Abdomen: positive: Tenderness (RIGHT side. Some incisional. Good bowel sounds. ) Skin: positive: Color nml Extremities: positive: Non-tender, Full ROM, Nml appearance Neurologic/Psychiatric: positive: Oriented x3 Impression/Plan - Problem List Problem List: D0 s/p laparosccopic appendectomy Patient was admitted due to uncontrolled postoperative pain. Earlier in her postoperative course she had received 400 mcg of fentanyl and was still complaining of pain. She is still complaining of pain out of proportion to what she should be feeling following the surgery. Additionally another point of concern is that her white blood cell count is still elevated with left shift despite the surgery and despite antibiotics. She is "acting" like someone who has kidney stones but her urinalysis has not been revealing. Due to her I do not want to do a CT scan to look for the hydronephrosis. Instead , I have ordered a retroperitoneal ultrasound. Additionally, due to her productive cough I have ordered a chest x-ray to rule out the possibility of pneumonia. It is definitely not safe to discharge this postoperative female with an elevated white blood cell count until he can find out the cause of the leukocytosis. The antibiotics will be continued as has the pain medication. Chest x-ray has been ordered for this evening with a retroperitoneal ultrasound to be done tomorrow morning. Additional lab work is also been ordered. I truly appreciate Dr. Wharton's input in the care of this patient. Blanca disclaimer: This document was created in part using voice recognition technology. Because of the inherent limitations of the system ([employer] user manual states that the licensee understands that speech recognition is a statistical process and that recognition errors are inherent in the process), occasional same sounding word substitutions and grammatical errors do occur and persist despite proofreading. Please read this document for context.
[2017-08-24] MEDS: HYDROmorphone 1 MG/ML CARPUJECT IVP PRN ×3 (00:31→07:52)
--- NOTE | 2017-08-24 02:09 | Ultrasound Preliminary Report ---
Exam: US Retroperitoneal IMPRESSION: 1. Mild bilateral pelviectasis. No renal stones or mass. 2. Normal bladder. 3. Small amount of fluid in upper abdomen. Gallbladder wall thickening noted. Correlate clinically fo r acute cholecystitis symptoms. Dedicated right upper quadrant ultrasound may be helpful in the prope r clinical circumstances. [facility] SITE ID: [id number]
--- NOTE | 2017-08-24 02:19 | Ultrasound Report ---
EXAM: RENAL ULTRASOUND EXAM DATE: 08/24/2017 12:59 AM. CLINICAL HISTORY: Pain. COMPARISON: 08/22/2017. TECHNIQUE: Real-time scanning was performed with static images obtained. FINDINGS: Right Kidney: 13.3 x 4.9 x 5.6 cm. No renal mass or stones. Mild right pelviectasis. Fluid is present in Morison's pouch. Left Kidney: 12.6 x 6.3 x 5.5 cm. Mild left pelviectasis is noted. No stones or renal masses. Bladder: Bilateral jets seen. The prevoid bladder volume was 319 cc. The postvoid bladder volume was 0 cc. No gallstones are noted. Small amount of fluid noted near the gallbladder. Significant gallbladder wa ll thickening. No report for sonographic De La Paz sign. heart rate of 150 bpm. IMPRESSION: 1. Mild bilateral pelviectasis. No renal stones or mass. 2. Normal bladder. 3. Small amount of fluid in the upper abdomen. Gallbladder wall thickening noted. Correlate clinicall y for acute cholecystitis symptoms. Dedicated right upper quadrant ultrasound may be helpful in the a ppropriate clinical circumstances. [facility] Referring Provider Line: [phone] SITE ID: [id number]
[2017-08-24] MEDS: SODIUM CHLORIDE 0.9% 1,000 ML IV SCH ×4 (03:01→15:17)
[2017-08-24] MEDS: AZTREONAM 2 GM in SODIUM CHLORIDE 0.9% MINIBAG 100 ML IV SCH ×2 (04:26→11:58)
[2017-08-24] MEDS: HYDROcod/ACETAM 10 MG/325 MG TABLET PO PRN ×4 (05:24→17:32)
[2017-08-24 05:43] LABS: BASOPHILS % (AUTO) 0.4 %; EOSINOPHILS # (AUTO) 0.1 10^3/uL (0.0-0.7); HCT - HEMATOCRIT 31.2 % (37.0-47.0); HGB - HEMOGLOBIN 10.4 g/dL (12.0-16.0); LYMPHOCYTES # (AUTO) 1.6 10^3/uL (1.5-3.5); LYMPHOCYTES % (AUTO) 13.3 %; MEAN CORPUSCULAR HEMOGLOBIN 31.5 pg (27.0-31.0); MEAN CORPUSCULAR HGB CONC 33.3 g/dL (32.0-36.0); MEAN CORPUSCULAR VOLUME 94.7 fL (81.0-99.0); MEAN PLATELET VOLUME 9.7 fL (7.9-10.8); MONOCYTES # (AUTO) 0.8 10^3/uL (0.0-1.0); MONOCYTES % (AUTO) 6.3 %; NEUTROPHILS # (AUTO) 9.8 10^3/uL (1.5-6.6); RED CELL DISTRIBUTION WIDTH 14.5 % (12.0-15.0); UNCORRECTED WHITE BLOOD COUNT 12.3 x10^3/uL; WHITE BLOOD COUNT 12.3 x10^3/uL (4.8-10.8)
--- NOTE | 2017-08-24 09:28 | XRAY Report ---
TWO VIEW CHEST: 08/23/2017 CLINICAL INDICATION: Cough, elevated white count. COMPARISON: 04/16/2014. FINDINGS: Frontal and lateral views of the chest are compared to previous films. The cardiac silhouette is within normal limits. The lungs are clear. No effusion or pneumothorax is p resent. IMPRESSION: NO EVIDENCE OF ACUTE CARDIOPULMONARY DISEASE. JOB #: [id number] EXT JOB #:[id number]
[2017-08-24] MEDS ORDERED: SODIUM CHLORIDE FLUSH 0.9% 10 ML SYRINGE IVP ONE (11:57)
--- NOTE | 2017-08-24 17:22 | Ultrasound Report ---
RIGHT UPPER QUADRANT ULTRASOUND: 08/24/2017 CLINICAL INDICATION: Gallbladder wall thickening on previous renal ultrasound. TECHNIQUE: Real-time scanning was performed with ict sales representative static images obtained. FINDINGS: The liver measures 16.7 cm. Hepatic echotexture is normal. No intrahepatic biliary dilat ation is present. The common bile duct is poorly visualized due to overlying bowel gas. The gallbla dder again demonstrates wall thickening, measuring 7 mm. No cholelithiasis is noted. Trace free flu id is present. The right kidney measures 13.9 cm, and again demonstrates mild pelviectasis. IMPRESSION: PERSISTENT GALLBLADDER WALL THICKENING. NO EVIDENCE OF INTRAHEPATIC BILIARY DILATATION OR CHOLELITHIASIS. TRACE FREE FLUID. 15:9:52 JOB #: [id number] EXT JOB #:[id number]
[2017-08-24 17:32] VITALS: BP 97/79
--- NOTE | 2017-08-24 18:23 | Discharge Plan ---
Discharge Plan Disposition: 01 Home, Self Care Condition: Good Prescriptions: HYDROcodone/ACET 10/325 [Hudson 10 mg/325 mg] 1 tab PO Q4HR PRN #30 tablet PRN Reason: Pain Docusate Sodium 250Mg Capsule [Colace 250Mg Capsule] 250 mg PO DAILY #10 capsule Doxycycline Monohydrate 100 mg PO DAILY #10 capsule metroNIDAZOLE [Flagyl] 250 mg PO Q6H #40 tablet Diet: Regular Activity Restrictions: No Restrictions Shower Restrictions: No Driving Restrictions: No Weight Bearing: Full Weight Additional Instructions or Follow Up instructions: Please note that patient presented with RLQ pain, elevated WBC to 18 and 16 weeks . Ultrasound did not visualize appendix and after a discussion with the patient regarding CT scan versus operation and the pros and cons laparoscopic appendectomy was completed uneventfully. Patient continued to have pain postoperatively and presumptive diagnosis of nephrolithiasis was made. Nothing seen on UA to suggest this but pain was out of proportion to physical findings. Retroperitoneal ultrasound did not show hydronephrosis. CXR was normal - no pneumonia. RUQ ultrasound shows thickened gallbladder but gallbladder was seen during operation and was normal. LFTs also normal. WBC down to 12 with antibiotics (Aztreonam and Flagyl while in hospital and Clindamycin and Flagyl on discharge). Patient has appointment with OB/Gyne tomorrow and this detailed note is written so that physician knows what was found and done. No real restrictions on discharge but would recommend completing course of antibiotics and a low fat diet. Patient should see me in follow up on Thursday August 31, 2017. #30 Hudson's prescribed as well as Colace to avoid constipation. No Smoking: If you smoke, Please STOP! Call for help. Follow-up with: Car Diez MD [Provider Admit Priv/Credential] -
== END 2017-08-24 19:00 | disposition home or self-care (01) ==
LOC: ED 19:09 → SDS 22:40 → OBS 08-23 02:15
PROVIDERS: ADMIT Surgery; ATTEND Surgery
PROC: 0DTJ4ZZ Resection of Appendix, Percutaneous Endoscopic Approach (ICD-10-PCS; principal; 2017-08-22 23:10)
DX: O99.89 Other specified diseases and conditions complicating pregnancy, childbirth and the puerperium (principal); K35.80 Unspecified acute appendicitis; R10.30 Lower abdominal pain, unspecified; K82.8 Other specified diseases of gallbladder; O26.612 Liver and biliary tract disorders in pregnancy, second trimester; O99.512 Diseases of the respiratory system complicating pregnancy, second trimester; R05 Cough; O99.332 Smoking (tobacco) complicating pregnancy, second trimester; F17.210 Nicotine dependence, cigarettes, uncomplicated; Z3A.16 16 weeks gestation of pregnancy; Z87.898 Personal history of other specified conditions
CPT/HCPCS: 36415; 44970; 71020; 76705; 76770; 80053; 80306; 81003; 83690; 85025; 87640; 88304; 94640; 99284; 99285; A9270; G0378; J0131; J1170; J2270; J7120; J7613; 81001; 87086

== ENCOUNTER 2018-10-21 17:33 | Emergency (ER) | payer MEDICAID ==
--- NOTE | 2018-10-21 19:01 | ED Physician Documentation ---
PD HPI HEENT - Stated complaint Stated Complaint: SORE THROAT - Chief complaint Chief Complaint: Heent - History obtained from History obtained from: Patient - History of Present Illness Timing - onset: Yesterday (fever, sore throat, dizzy. 2 family members with strep.) Review of Systems Constitutional: reports: Fever, Chills Nose: reports: Rhinorrhea / runny nose Throat: reports: Sore throat PD PAST MEDICAL HISTORY - Past Medical History Cardiovascular: None Respiratory: None Endocrine/Autoimmune: None GI: None MARKETING ADMIN: None : None HEENT: None Psych: None Musculoskeletal: None Derm: None - Past Surgical History Past Surgical History: No - Present Medications Home Medications: Ambulatory Orders Medication Instructions Recorded Confirmed Azithromycin [Zithromax] 1 tab PO DAILY #4 tablet 10/21/18 - Allergies Allergies/Adverse Reactions: Allergies Allergy/AdvReac Type Severity Reaction Status Date / Time Penicillins AdvReac Rash Verified 08/22/17 19:25 Sulfa (Sulfonamide AdvReac Rash Verified 10/21/18 17:40 Antibiotics) - Social History Does the pt smoke?: Yes Smoking Status: Current every day smoker Does the pt drink ETOH?: No Does the pt have substance abuse?: No - Immunizations Immunizations are current?: Yes - POLST Patient has POLST: No PD ED PE NORMAL - Vitals Vital signs reviewed: Yes - General General: Alert and oriented X 3, No acute distress - HEENT HEENT: PERRL, Pharynx benign, Other (normal OP) - Neck Neck: Other (Mod R adenopathy) - Abdomen Abdomen: Non tender - Neuro Neuro: Alert and oriented X 3, extruder 2-12 intact - Psych Psych: Normal mood, Normal affect Results - Vitals Vitals: Vital Signs - 24 hr 10/21/18 17:38 Temperature 36.3 C L Heart Rate 94 Respiratory 14 Rate Blood Pressure 129/82 H O2 Saturation 100 Oxygen O2 Source Room air - Labs Labs: Laboratory Tests 10/21/18 17:45 Group A Strep Rapid Negative PD MEDICAL DECISION MAKING - ED course ED course: Given typical symptoms and family members with whom she lives with positive strep test will treat for same despite negative rapid strep. Note anaphylactic reaction to penicillin, not a simple rash. Departure - Departure Disposition: 01 Home, Self Care Clinical Impression: Sore throat Condition: Fair Record reviewed to determine appropriate education?: Yes Instructions: ED Strep Pharyngitis Poss Prescriptions: Azithromycin [Zithromax] 1 tab PO DAILY #4 tablet Comments: Your blood pressure was elevated today on check into the emergency department. This does not mean that you have hypertension, it is a common phenomenon to come to the emergency department and have elevated blood pressure. I recommend that you see your primary care physician within the week to have it rechecked when you are feeling better.
[2018-10-21] MEDS ORDERED: AZITHROMYCIN 250 MG TABLET PO STA (19:12)
[2018-10-21 19:20] VITALS: BP 128/82
== END 2018-10-21 19:18 | disposition home or self-care (01) ==
LOC: ED 17:33
DX: J02.9 Acute pharyngitis, unspecified (principal); F17.200 Nicotine dependence, unspecified, uncomplicated
CPT/HCPCS: 87070; 87077; 87430; 99282; 99283; A9270

== ENCOUNTER 2019-04-17 10:15 | Emergency (ER) | payer MEDICAID ==
--- NOTE | 2019-04-17 10:44 | ED Physician Documentation ---
PD HPI HEADACHE - Stated complaint Stated Complaint: VISION CHANGES/PHILIP - Chief complaint Chief Complaint: General - History obtained from History obtained from: Patient - History of Present Illness Timing - onset: Today Timing - onset during: Light activity Timing - details: Abrupt onset Worst headache ever?: Worst headache ever? Location: Front, Right Quality: Aching, Tightness. No: Thunderclap, Throbbing Associated symptoms: Nausea, Vomiting, Vision changes (She has noted some blurred vision especially around the periphery and this morning was having scotomata and some peripheral blurriness and wavy lines on the right eye prior to the headache starting. She had noticed some blurring of vision intermittently in both eyes over the last couple of weeks and had been having some occasional frontal headaches and periorbital pressure and pains for the last couple of weeks. She has had some nasal discharge as well). No: Fever, Stiff neck Worsened by: Light Contributing factors: Recent illness (some sinus pressure and pain and nasal discharge for couple weeks.). No: Anticoagulated Similar symptoms before: Has not had sx before Recently seen: Not recently seen Review of Systems Constitutional: denies: Fever, Chills Eyes: reports: Decreased vision (for couple weeks, feeling vision blurred to variable degrees.), Photophobia (today) Nose: reports: Congestion, Sinus pressure / pain (with some nasal discharge for couple of weeks.). denies: Rhinorrhea / runny nose Throat: denies: Dental pain / toothache, Sore throat Cardiac: denies: Chest pain / pressure Respiratory: denies: Cough GI: reports: Nausea, Vomiting (today) Skin: denies: Rash Neurologic: reports: Headache (intermittently, but severe today). 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 HEENT: None Psych: None Musculoskeletal: None Derm: None - Past Surgical History Past Surgical History: No - Present Medications Home Medications: Ambulatory Orders Medication Instructions Recorded Confirmed Cetirizine [ZyrTEC] 10 mg PO DAILY #15 tablet 04/17/19 Doxycycline Hyclate 100 mg PO BID #20 capsule 04/17/19 Hydrocodone/Acetaminophen [[place] 1 each PO Q6H PRN #15 tablet 04/17/19 5-325 Tablet] Ondansetron Odt [Zofran] 4 mg TL Q6H PRN #10 tablet 04/17/19 dexAMETHasone [Decadron] 4 mg PO DAILY #5 tablet 04/17/19 - Allergies Allergies/Adverse Reactions: Allergies Allergy/AdvReac Type Severity Reaction Status Date / Time Penicillins AdvReac Rash Verified 04/17/19 10:28 Sulfa (Sulfonamide AdvReac Rash Verified 04/17/19 10:28 Antibiotics) - Social History Does the pt smoke?: Yes Smoking Status: Current every day smoker Does the pt drink ETOH?: No Does the pt have substance abuse?: No - Immunizations Immunizations are current?: Yes - POLST Patient has POLST: No PD ED PE NORMAL - Vitals Vital signs reviewed: Yes - General General: Alert and oriented X 3, Well developed/nourished, Other (appears in pain and nauseated. Light sensitive. 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, No motor deficit, No sensory deficit, Normal speech Eye Opening: Spontaneous Motor: Obeys Commands Verbal: Oriented GCS Score: 15 Results - Vitals Vitals: Vital Signs - 24 hr 04/17/19 04/17/19 10:24 13:03 Temperature 36.6 C Heart Rate 68 81 Respiratory 16 16 Rate Blood Pressure 123/94 H 102/67 O2 Saturation 100 98 Oxygen O2 Source Room air - Labs Labs: Laboratory Tests 04/17/19 04/17/19 04/17/19 11:33 11:33 11:33 WBC 11.0 H RBC 4.09 L Hgb 12.3 Hct 37.6 MCV 91.9 MCH 30.2 MCHC 32.8 RDW 14.0 Plt Count 378 MPV 8.1 Neut # (Auto) 7.5 H Lymph # (Auto) 2.5 [place] # (Auto) 0.8 Eos # (Auto) 0.1 Baso # (Auto) 0.1 Absolute Nucleated RBC 0.00 Nucleated RBC % 0.0 ESR 13 Sodium 135 Potassium 4.1 Chloride 101 Carbon Dioxide 24 Anion Gap 10.0 BUN 13 Creatinine 0.6 Estimated GFR (MDRD) 122 Glucose 101 H Calcium 9.0 Total Bilirubin 0.5 AST 26 ALT 21 Alkaline Phosphatase 47 Total Protein 7.3 Albumin 3.8 Globulin 3.5 Albumin/Globulin Ratio 1.1 Lipase 22 - Rads (name of study) head CT Radiology: Prelim report reviewed (normal intracranial. Sinusitis noted left sphenoid and maxillary. ), See rad report PD MEDICAL DECISION MAKING - ED course Complexity details: re-evaluated patient (Recheck after just migraine targeted medicines showed a moderate improvement but still having some headache in the frontal area. She was given repeat dose of antiemetic and also some pain medicine added. We discussed and elected to do a CT scan because of the newness of her headache and the associated visual changes and blurriness over the last week or 2. This showed normal intracranial area but some sinusitis. Recheck on the patient again had her headache considerably improved. She declined any further medication at this point. I updated her on her findings of the sinusitis but normal CT otherwise in my impression of the main headache today being migraine.), considered differential, d/w patient Departure - Departure Disposition: 01 Home, Self Care Clinical Impression: Blurred vision Migraine headache with aura Qualifiers: Status migrainosus presence: without status migrainosus Intractability: not intractable Qualified Code(s): G43.109 - Migraine with aura, not intractable, without status migrainosus Sinusitis, acute Qualifiers: Sinusitis location: unspecified location Recurrence: non-recurrent Qualified Code(s): J01.90 - Acute sinusitis, unspecified Condition: Stable Record reviewed to determine appropriate education?: Yes Instructions: ED Sinusitis Abx Tx, ED Headache Migraine Follow-Up: Opal Krueger ARNP, [facility] [Primary Care Provider] - Prescriptions: Cetirizine [ZyrTEC] 10 mg PO DAILY #15 tablet dexAMETHasone [Decadron] 4 mg PO DAILY #5 tablet Doxycycline Hyclate 100 mg PO BID #20 capsule Hydrocodone/Acetaminophen [[place] 5-325 Tablet] 1 each PO Q6H PRN #15 tablet PRN Reason: Pain Ondansetron Odt [Zofran] 4 mg TL Q6H PRN #10 tablet PRN Reason: Nausea / Vomiting Comments: Your acute headache today sounds like a migraine. We will have to see if there is any repetitive headaches similar in the near future. Migraines can be occasional episodic or sometimes will develop into a more regular pattern every few weeks or months. Your CT scan appeared normal in the brain area. It did show sinus infection around the left and may be accounting for some of the symptoms he been having. It could potentially also trigger the migraine. Stay well-hydrated. Use Decadron for for inflammation of the sinuses and cetirizine antihistamine to de crease fluid. Doxycycline antibiotic for the infection component. Use ondansetron if needed for nausea and Tylenol or ibuprofen for pains and add hydrocodone if needed for headache. Follow-up with your primary care if not improved over the next several days to week.
[2019-04-17] MEDS ORDERED: SODIUM CHLORIDE 0.9% 1,000 ML IV ONE (11:23)
[2019-04-17] MEDS ORDERED: KETOROLAC 30 MG/ML VIAL IVP STA (11:23)
[2019-04-17] MEDS ORDERED: diphenhydrAMINE INJ 50 MG/ML VIAL IVP STA (11:23)
[2019-04-17] MEDS ORDERED: PROCHLORPERAZINE 10 MG/2 ML VIAL IVP STA ×2 (11:23→12:29)
[2019-04-17 11:45] LABS: BASOPHILS # (AUTO) 0.1 10^3/uL (0.0-0.1); BASOPHILS % (AUTO) 1.3 %; EOSINOPHILS # (AUTO) 0.1 10^3/uL (0.0-0.7); HGB - HEMOGLOBIN 12.3 g/dL (12.0-16.0); LYMPHOCYTES # (AUTO) 2.5 10^3/uL (1.5-3.5); LYMPHOCYTES % (AUTO) 22.6 %; MEAN CORPUSCULAR HEMOGLOBIN 30.2 pg (27.0-31.0); MEAN CORPUSCULAR HGB CONC 32.8 g/dL (32.0-36.0); MEAN CORPUSCULAR VOLUME 91.9 fL (81.0-99.0); MEAN PLATELET VOLUME 8.1 fL (7.9-10.8); MONOCYTES # (AUTO) 0.8 10^3/uL (0.0-1.0); MONOCYTES % (AUTO) 7.1 %; NEUTROPHILS # (AUTO) 7.5 10^3/uL (1.5-6.6); PLT - PLATELET COUNT 378 10^3/uL (130-450); RED BLOOD COUNT 4.09 10^6/uL (4.20-5.40)
[2019-04-17 11:58] LABS: ALBUMIN 3.8 g/dL (3.2-5.5); ALBUMIN/GLOBULIN RATIO 1.1 (1.0-2.2); BILIRUBIN,TOTAL 0.5 mg/dL (0.2-1.0); CREATININE 0.6 mg/dL (0.4-1.0); TOTAL PROTEIN 7.3 g/dL (6.7-8.2)
[2019-04-17] MEDS ORDERED: HYDROmorphone 1 MG/ML CARPUJECT IVP STA (12:29)
--- NOTE | 2019-04-17 12:58 | CT Report ---
Reason: headache and blurred vision this morning Procedure Date: 04/17/2019 Accession Number: [id number] / [id number] Procedure: CT - HEAD WO CPT Code: FULL RESULT: EXAM: CT HEAD EXAM DATE: 04/17/2019 12:50 PM. CLINICAL HISTORY: Headache and blurred vision this morning. COMPARISON: None. TECHNIQUE: Multiaxial CT images were obtained from the foramen magnum to the vertex. Reformats: Sagittal and coronal. IV contrast: None. In accordance with CT protocol optimization, one or more of the following dose reduction techniques were utilized for this exam: automated exposure control, adjustment of mA and/or KV based on patient size, or use of iterative reconstructive technique. FINDINGS: Parenchyma: No intraparenchymal hemorrhage. No evidence of mass, midline shift. Lowery-white differentiation is distinct. Extraaxial Spaces: Basal cisterns are preserved. No subdural or epidural collections identified. Ventricles: Normal in size and position. Sinuses and Orbits: Mucoperiosteal thickening with partial opacification of the left maxillary sinus and mucoperiosteal thickening in the visualized ethmoid air cells and partial opacification of the left sphenoid sinus. Visualized orbits are unremarkable. Mastoid air cells are appropriately pneumatized with no effusion. Bones: No evidence of fracture or calvarial defect. Other: None. IMPRESSION: No acute intracranial abnormality. Sinus disease. RADIA
[2019-04-17] MEDS ORDERED: DEXAMETHASONE 10 MG/ML VIAL IVP STA (13:21)
[2019-04-17 13:45] VITALS: BP 111/79
== END 2019-04-17 13:54 | disposition home or self-care (01) ==
LOC: ED 10:15
DX: G43.109 Migraine with aura, not intractable, without status migrainosus (principal); J01.90 Acute sinusitis, unspecified; F17.200 Nicotine dependence, unspecified, uncomplicated
CPT/HCPCS: 36415; 70450; 80053; 83690; 85025; 85651; 96361; 96374; 96375; 99283; 99284; J1170; J1200

== ENCOUNTER 2019-05-04 09:31 | Emergency (ER) | payer MEDICAID ==
[2019-05-04 09:43] VITALS: BP 111/63
== END 2019-05-04 10:45 | disposition left against medical advice (07) ==
LOC: ED 09:31
DX: Z53.21 Procedure and treatment not carried out due to patient leaving prior to being seen by health care provider (principal)

== ENCOUNTER 2021-02-20 11:12 | Outpatient (CLI) | payer OTHER, MEDICAID | END 2021-02-20 11:13 | disposition critical access hospital (66) | LOC: EMS 11:12 | PROVIDERS: ATTEND Emergency Medicine | DX: M54.2 Cervicalgia (principal); R07.81 Pleurodynia; R10.2 Pelvic and perineal pain | CPT/HCPCS: A0425; A0429; A0999 ==

== ENCOUNTER 2021-02-20 11:30 | Emergency (ER) | payer OTHER, MEDICAID ==
[2021-02-20 12:00] LABS: BASOPHILS # (AUTO) 0.1 10^3/uL (0.0-0.1); BASOPHILS % (AUTO) 0.8 %; EOSINOPHILS # (AUTO) 0.1 10^3/uL (0.0-0.7); EOSINOPHILS % (AUTO) 1.6 %; HCT - HEMATOCRIT 32.5 % (37.0-47.0); HGB - HEMOGLOBIN 10.5 g/dL (12.0-16.0); LYMPHOCYTES # (AUTO) 1.7 10^3/uL (1.5-3.5); LYMPHOCYTES % (AUTO) 20.5 %; MEAN CORPUSCULAR HEMOGLOBIN 29.2 pg (27.0-31.0); MEAN CORPUSCULAR HGB CONC 32.3 g/dL (32.0-36.0); MEAN CORPUSCULAR VOLUME 90.3 fL (81.0-99.0); MEAN PLATELET VOLUME 9.8 fL (7.9-10.8); MONOCYTES # (AUTO) 0.6 10^3/uL (0.0-1.0); MONOCYTES % (AUTO) 7.7 %; NEUTROPHILS # (AUTO) 5.7 10^3/uL (1.5-6.6); NEUTROPHILS % (AUTO) 69.2 %; PLT - PLATELET COUNT 288 10^3/uL (130-450); RED CELL DISTRIBUTION WIDTH 14.1 % (12.0-15.0); WHITE BLOOD COUNT 8.3 x10^3/uL (4.8-10.8)
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
[2021-02-20 12:16] LABS: ALBUMIN 3.4 g/dL (3.2-5.5); ALBUMIN/GLOBULIN RATIO 1.1 (1.0-2.2); BILIRUBIN,TOTAL 0.2 mg/dL (0.2-1.0); CALCIUM 8.6 mg/dL (8.5-10.3); CREATININE 0.6 mg/dL (0.4-1.0); POTASSIUM 3.9 mmol/L (3.5-5.0); TOTAL PROTEIN 6.4 g/dL (6.7-8.2)
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
[2021-02-20] MEDS ORDERED: IBUPROFEN 800 MG TABLET PO STA (12:47)
[2021-02-20 12:54] VITALS: BP 126/98
== END 2021-02-20 12:59 | disposition home or self-care (01) ==
LOC: EDUNIT# → ED 11:30
DX: Z04.1 Encounter for examination and observation following transport accident (principal); F17.200 Nicotine dependence, unspecified, uncomplicated
CPT/HCPCS: 36415; 71101; 72125; 80053; 83690; 85025; 99282; 99284; A9270

== ENCOUNTER 2022-01-09 14:02 | Emergency (ER) | payer MEDICAID ==
[2022-01-09 14:10] VITALS: BP 133/75
--- NOTE | 2022-01-09 14:14 | ED Physician Documentation ---
PD HPI LOWER EXT INJURY - Stated complaint Stated Complaint: R ANKLE INJ - Chief complaint Chief Complaint: Trauma Ext - History obtained from History obtained from: Patient - Additional information Additional information: Missed one stair and hyper plantarflexed her right ankle last night with moderate pain laterally. She is able to walk and bear weight but with some difficulty due to pain. No other injuries. 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 HEENT: None Psych: None Musculoskeletal: None Derm: None - Past Surgical History Past Surgical History: Yes General: Appendectomy - Allergies Allergies/Adverse Reactions: Allergies Allergy/AdvReac Type Severity Reaction Status Date / Time Penicillins AdvReac Rash Verified 01/09/22 14:10 Sulfa (Sulfonamide AdvReac Rash Verified 01/09/22 14:10 Antibiotics) - Social History Does the pt smoke?: Yes Smoking Status: Current every day smoker Does the pt drink ETOH?: No Does the pt have substance abuse?: No - Immunizations Immunizations are current?: Yes - POLST Patient has POLST: No PD ED PE NORMAL - Vitals Vital signs reviewed: Yes - General General: Alert and oriented X 3, No acute distress - Extremities Extremities: Other (Tender over the ATFL more than the lateral malleolus but tender over both of the right ankle. Also some tenderness over the talar dome. No medial tenderness nor is there any foot or proximal fibular tenderness.) - Neuro Neuro: Alert and oriented X 3, Normal speech Eye Opening: Spontaneous Motor: Obeys Commands Verbal: Oriented GCS Score: 15 Results - Vitals Vitals: Vital Signs - 24 hr 01/09/22 14:06 Temperature 36.4 C L Heart Rate 91 Respiratory 16 Rate Blood Pressure 133/75 H O2 Saturation 100 Oxygen O2 Source Room air PD MEDICAL DECISION MAKING - ED course ED course: Three-view x-ray of the right ankle interpreted contemporaneously by me shows lateral soft tissue swelling but no fracture. Treatment in the emergency department consisted of fitting for crutches and an Aircast. She is able to walk and bear weight but felt much more comfortable on the crutches. Discussed she can walk and bear weight as tolerated and we expect the pain to get better over the course of just a few days. [id number] pain medication for pain and inflammation and return precautions were discussed. Departure - Departure Disposition: 01 Home, Self Care Clinical Impression: Right ankle sprain Qualifiers: Encounter type: initial encounter Involved ligament of ankle: anterior talofibular ligament Qualified Code(s): S93.491A - Sprain of other ligament of right ankle, initial encounter Condition: Good Record reviewed to determine appropriate education?: Yes Instructions: ED Sprain Ankle Comments: You can take ibuprofen or Tylenol as needed for package instructions for pain, also ice and elevate. If not better over the next week or 2, follow-up with your primary care physician for reevaluation and potential repeat x-rays. Return for new or worsening symptoms. It is okay to walk and bear weight as tolerated. Discharge Date/Time: 01/09/22 14:48
--- NOTE | 2022-01-09 15:17 | XRAY Report ---
PROCEDURE: Ankle 3 View RT INDICATIONS: Pain TECHNIQUE: 3 views of the ankle were acquired. COMPARISON: None FINDINGS: Bones: No fractures or dislocations. Ankle mortise is normally aligned. No suspicious bony lesions . Soft tissues: No tibiotalar joint effusion. Achilles tendon appears normal. Lateral soft tissue sw elling IMPRESSION: Lateral soft tissue swelling without fracture or foreign body Reviewed by: Gus Zendejas MD on 01/09/2022 2:16 PM [place] Approved by: Gus Zendejas MD on 01/09/2022 2:16 PM [place] Station ID: [id number]
== END 2022-01-09 14:48 | disposition home or self-care (01) ==
LOC: ED 14:02
DX: S93.491A Sprain of other ligament of right ankle, initial encounter (principal); W10.9XXA Fall (on) (from) unspecified stairs and steps, initial encounter; F17.200 Nicotine dependence, unspecified, uncomplicated
CPT/HCPCS: 99282; 99283

== ENCOUNTER 2022-03-17 16:17 | Outpatient (CLI) | payer MEDICAID ==
[2022-03-17 20:56] LABS: BASOPHILS # (AUTO) 0.1 10^3/uL (0.0-0.1); BASOPHILS % (AUTO) 0.8 %; EOSINOPHILS # (AUTO) 0.1 10^3/uL (0.0-0.7); EOSINOPHILS % (AUTO) 1.5 %; HCT - HEMATOCRIT 41.5 % (37.0-47.0); HGB - HEMOGLOBIN 13.9 g/dL (12.0-16.0); LYMPHOCYTES # (AUTO) 2.4 10^3/uL (1.5-3.5); LYMPHOCYTES % (AUTO) 27.6 %; MEAN CORPUSCULAR HEMOGLOBIN 30.6 pg (27.0-31.0); MEAN CORPUSCULAR HGB CONC 33.5 g/dL (32.0-36.0); MEAN CORPUSCULAR VOLUME 91.4 fL (81.0-99.0); MEAN PLATELET VOLUME 10.6 fL (7.9-10.8); MONOCYTES # (AUTO) 0.8 10^3/uL (0.0-1.0); MONOCYTES % (AUTO) 9.1 %; NEUTROPHILS # (AUTO) 5.2 10^3/uL (1.5-6.6); NEUTROPHILS % (AUTO) 60.8 %; PLT - PLATELET COUNT 376 10^3/uL (130-450); RED BLOOD COUNT 4.54 10^6/uL (4.20-5.40); RED CELL DISTRIBUTION WIDTH 14.5 % (12.0-15.0); WHITE BLOOD COUNT 8.5 x10^3/uL (4.8-10.8)
[2022-03-17 21:16] LABS: ALBUMIN 4.5 g/dL (3.2-5.5); ALBUMIN/GLOBULIN RATIO 1.5 (1.0-2.2); ALKALINE PHOSPHATASE 48 IU/L (42-121); ALT ALANINE AMINOTRANSFERASE 16 IU/L (10-60); AST ASPARTATE AMINOTRANSFERASE 23 IU/L (10-42); BILIRUBIN,TOTAL 0.6 mg/dL (0.2-1.0); BUN - BLOOD UREA NITROGEN 16 mg/dL (6-20); CALCIUM 9.2 mg/dL (8.5-10.3); CARBON DIOXIDE - CO2 27 mmol/L (21-32); CHLORIDE 105 mmol/L (101-111); CHOL/HDL RATIO 2.3 (<4.4); CHOLESTEROL 157 mg/dL; CREATININE 0.7 mg/dL (0.4-1.0); GFR - MDRD 100 (>89); GLUCOSE 103 mg/dL (70-100); HDL CHOLESTEROL 69 mg/dL; POTASSIUM 3.8 mmol/L (3.5-5.0); SODIUM 139 mmol/L (135-145); TOTAL PROTEIN 7.5 g/dL (6.7-8.2); TRIGLYCERIDES 28 mg/dL
[2022-03-17 21:25] LABS: THYROID STIMULATING HORMONE 1.32 uIU/mL (0.34-5.60)
== END 2022-03-17 16:18 | disposition home or self-care (01) ==
LOC: LAB.N 16:17
PROVIDERS: ATTEND Nurse Practitioner
DX: R53.83 Other fatigue (principal); Z13.220 Encounter for screening for lipoid disorders; R25.1 Tremor, unspecified; G62.9 Polyneuropathy, unspecified
CPT/HCPCS: 36415; 80053; 80061; 81001; 81599; 82607; 83036; 83721; 84443; 85025; 87086

== ENCOUNTER 2024-07-06 20:11 | Emergency (ER) | payer MEDICAID ==
[2024-07-06 20:37] VITALS: BP 109/85; O2SAT 96
--- NOTE | 2024-07-06 21:12 | ED Physician Documentation ---
History of Present Illness - Stated complaint Stated Complaint: RT PINKY INJ - Chief complaint Chief Complaint: Laceration - History obtained from History obtained from: Patient - History of Present Illness Timing: Prior to arrival - Additonal information Additional information: Patient is a 28-year-old female presenting to the emergency department with right fifth digit laceration after cutting an apple at home. Last tetanus was within the last 10 years she denies any significant contamination injury occurred only about 2 hours prior to arrival. Wound clean dry minimal bleeding on examination injury at proximal fifth digit. 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 HEENT: None Psych: None Musculoskeletal: None Derm: None - Past Surgical History Past Surgical History: Yes General: Appendectomy - Present Medications Home Medications: Ambulatory Orders Medication Instructions Recorded Confirmed Escitalopram [Lexapro] 15 mg PO DAILY 07/06/24 07/06/24 - Allergies Allergies/Adverse Reactions: Allergies Allergy/AdvReac Type Severity Reaction Status Date / Time Penicillins AdvReac Rash Verified 07/06/24 20:20 Sulfa (Sulfonamide AdvReac Rash Verified 07/06/24 20:20 Antibiotics) - Social History Does the pt smoke?: Yes Smoking Status: Current every day smoker Does the pt drink ETOH?: No Does the pt have substance abuse?: No - Immunizations Immunizations are current?: Yes - POLST Patient has POLST: No PD ED PE NORMAL - Vitals Vital signs reviewed: Yes - General General: Alert and oriented X 3 - HEENT HEENT: Atraumatic - Neck Neck: Supple, no meningeal sign - Cardiac Cardiac: RRR - Respiratory Respiratory: No respiratory distress, Clear bilaterally - Abdomen Abdomen: Normal bowel sounds - Derm Derm: Normal color, Other (Good capillary refill) - Extremities Extremities: No deformity - Neuro Neuro: Alert and oriented X 3 Eye Opening: Spontaneous Motor: Obeys Commands Verbal: Oriented GCS Score: 15 Results - Vitals Vitals: Oxygen O2 Source Room air Procedures - Laceration (location) Finger left Palmar Length in cm: 2 Wound type: Linear Neurovascular status: Sensory intact, Motor intact, Vascular intact Tendon involvement: Tendon intact Anesthesia: Lidocaine 1% Wound preparation: Irrigated copiously NS Skin layer closure: Nylon, Sutures - enter # (4) Other: Patient tolerated well, No complications, Dressing applied, Tetanus UTD PD Medical Decision Making - ED course Complexity details: re-evaluated patient ED course: Patient is a 28-year-old female presents to the emergency department with past medical history and symptoms as listed above. Patient sustained right distal finger laceration. Patient had sutures placed with nylon here in the emergency department. Patient tolerated procedure well see procedure note above. Chavez crawford's tetanus is up-to-date. Wound was cleaned thoroughly here in the emergency department. Patient instructed to keep wound clean and dry follow-up with PCP for removal of sutures in 10 to 14 days. Patient's wound wrapped here in the emergency department. Additionally patient instructed to return with any redness swelling warmth fevers or discharge from wound. Departure - Departure Disposition: Left Prior to Disposition Clinical Impression: Laceration of right little finger w/o foreign body w/o damage to nail, Laceration Condition: Good Forms: PCP List Discharge Date/Time: 07/06/24 22:10
[2024-07-06] MEDS: lidocaine 1% 20 ML MDV SUBQ ONE (21:25)
== END 2024-07-06 22:10 | disposition home or self-care (01) ==
LOC: ED 20:11
DX: S61.216A Laceration without foreign body of right little finger without damage to nail, initial encounter (principal); W45.8XXA Other foreign body or object entering through skin, initial encounter; Y93.G9 Activity, other involving cooking and grilling; Y92.009 Unspecified place in unspecified non-institutional (private) residence as the place of occurrence of the external cause; F17.200 Nicotine dependence, unspecified, uncomplicated; Z79.899 Other long term (current) drug therapy
CPT/HCPCS: 12001; 99283